=== PATIENT | male | born 1965 | race Caucasian/White ===

== ENCOUNTER 2017-10-07 10:39 | Emergency (ER) | payer OTHER ==
[2017-10-07] MEDS ORDERED: methylPREDNISolone Sodium Succinate 125 MG/2 ML SDV IVPUSH ONE (12:34)
[2017-10-07] MEDS ORDERED: Sodium Chloride 0.9% 1,000 ML IV ONE (12:56)
[2017-10-07 13:17] LABS: CHLORIDE,CL 103 mmol/L (101-111); SODIUM,NA 138 mmol/L (135-145)
[2017-10-07] MEDS ORDERED: Potassium Chloride 10 MEQ Tab.ER PO ONE (14:44)
--- NOTE | 2017-10-07 14:53 | EDM.PDOC ---
Scribed by Joan Moser 10/07/17 1255 for Janeen Redding PA-C ED HPI GENERAL MEDICAL PROBLEM - General Chief Complaint: Skin Complaint Stated Complaint: [id number] RASH ON ARM AND BACK Time Seen by Provider: 10/07/17 11:30 Source of Information: Reports: Patient, RN, RN Notes Reviewed History Limitations: Reports: No Limitations - History of Present Illness INITIAL COMMENTS - FREE TEXT/NARRATIVE: generalized rash with itching, Treatments SPORTS MEDICINE COORDINATOR: Reports: Other (see below) Other Treatments SPORTS MEDICINE COORDINATOR: benadryl - Related Data Allergies Allergy/AdvReac Type Severity Reaction Status Date / Time Penicillins Allergy Severe Rash Verified 10/07/17 11:13 Home Meds: Home Meds Cetirizine HCl [Allergy Relief] 10 mg PO DAILY 10/07/17 [History] RX: Omeprazole 20 mg PO DAILY 10/07/17 [History] RX: Warfarin Sodium 5 mg PO ASDIRECTED 10/07/17 [History] RX: Warfarin Sodium 7.5 mg PO ASDIRECTED 10/07/17 [History] Simvastatin [Zocor] 40 mg PO BEDTIME 10/07/17 [History] diphenhydrAMINE [Benadryl] 25 mg PO Q4H PRN 10/07/17 [History] rOPINIRole HCl [Requip] 0.5 mg PO BEDTIME 10/07/17 [History] Past Medical History HEENT History: Reports: Allergic Rhinitis Cardiovascular History: Reports: Blood Clots/VTE/DVT, High Cholesterol Gastrointestinal History: Reports: GERD Psychiatric History: Reports: PTSD - Past Surgical History Musculoskeletal Surgical History: Reports: Shoulder Surgery Social & Family History - Family History Family Medical History: Noncontributory - Tobacco Use Smoking Status *Q: Never Smoker Second Hand Smoke Exposure: No - Caffeine Use Caffeine Use: Reports: Coffee, Soda, Tea - Recreational Drug Use Recreational Drug Use: No ED ROS GENERAL - Review of Systems Review Of Systems: See Below Constitutional: Reports: No Symptoms HEENT: Reports: No Symptoms Respiratory: Reports: No Symptoms Cardiovascular: Reports: No Symptoms GI/Abdominal: Reports: No Symptoms : Reports: No Symptoms Musculoskeletal: Reports: No Symptoms Skin: Reports: Rash, Erythema, Urticaria Neurological: Reports: No Symptoms ED EXAM, SKIN/RASH Exam: See Below Exam Limited By: No Limitations General Appearance: Alert, No Apparent Distress Eye Exam: Bilateral Eye: PERRL Ears: Normal External Exam Nose: Normal Inspection Throat/Mouth: Normal Inspection Head: Atraumatic, Normocephalic Neck: Normal Inspection, Full Range of Motion Respiratory/Chest: No Respiratory Distress, Lungs Clear, Normal Breath Sounds Cardiovascular: Normal Peripheral Pulses, Regular Rate, Rhythm GI/Abdominal: Normal Bowel Sounds, Soft, Non-Tender Rectal (Males) Exam: Normal Exam Back Exam: Full Range of Motion Extremities: Normal Inspection Neurological: Alert, Oriented, Normal Cognition, Normal Gait Skin: Warm, Dry Location, Skin: Generalized, Other (generlaized raised niraj urticarial rash, denser on lower forearms and right young. ) Characteristics: Urticarial. No: Vesicular Associated features: Induration (right anterior young) Course - Vital Signs Last Recorded V/S: Last Vital Signs Temp 97.4 F 10/07/17 11:21 Pulse 46 L 10/07/17 14:17 Resp 17 10/07/17 14:17 BP 148/91 H 10/07/17 14:17 Pulse Ox 99 10/07/17 14:17 - Orders/Labs/Meds Orders: Active Orders 24 hr Category Date Time Status EKG 12 Lead [EKG Documentation Completion] [RC] STAT Care 10/07/17 13:10 Active UA W/MICROSCOPIC [URIN] Stat Lab 10/07/17 13:34 Ordered Labs: Laboratory Tests 10/07/17 10/07/17 10/07/17 Range/Units 12:50 12:50 12:50 WBC 8.1 (5.0-10.0) 10^3/uL RBC 5.00 (4.6-6.2) 10^6/uL Hgb 15.0 (14.0-18.0) g/dL Hct 44.3 (40.0-54.0) % MCV 88.6 (80-100) fL MCH 30.0 (27.0-34.0) pg MCHC 33.9 (33.0-35.0) g/dL Plt Count 271 (150-450) 10^3/uL Neut % (Auto) 56.0 (42.2-75.2) % Lymph % (Auto) 27.2 (20.5-50.1) % [place] % (Auto) 11.2 H (2-8) % Eos % (Auto) 5.1 H (1.0-3.0) % Baso % (Auto) 0.5 (0.0-1.0) % PT 28.3 H (9.0-12.0) SEC INR 2.9 H (0.9-1.2) D-Dimer, Quantitative (0-400) ng/mL Sodium 138 (135-145) mmol/L Potassium 3.3 L (3.6-5.0) mmol/L Chloride 103 (101-111) mmol/L Carbon Dioxide 29.0 (21.0-31.0) mmol/L Anion Gap 9.3 BUN 10 (7-18) mg/dL Creatinine 1.0 (0.6-1.3) mg/dL Est Cr Clr Drug Dosing 98.77 mL/min Estimated GFR (MDRD) > 60 BUN/Creatinine Ratio 10.00 Glucose 83 (74-105) mg/dL Calcium 9.1 (8.4-10.2) mg/dl Total Bilirubin 0.4 (0.2-1.0) mg/dL AST 26 (10-42) IU/L ALT 37 (10-60) IU/L Alkaline Phosphatase 76 (42-121) IU/L Troponin I (0.00-0.02) ng/ml C-Reactive Protein (0.0-1.3) mg/dL Total Protein 7.9 (6.7-8.2) g/dl Albumin 4.0 (3.2-5.5) g/dl Globulin 3.9 Albumin/Globulin Ratio 1.03 Urine Color (YELLOW) Urine Appearance (CLEAR) Urine pH (5.0-9.0) Ur Specific [place] (1.005-1.030) Urine Protein (NEGATIVE) Urine Glucose (UA) (NEGATIVE) Urine Ketones (NEGATIVE) Urine Occult Blood (NEGATIVE) Urine Nitrite (NEGATIVE) Urine Bilirubin (NEGATIVE) Urine Urobilinogen (0.2-1.0) mg/dL Ur Leukocyte Esterase (NEGATIVE) Urine RBC /HPF Urine WBC (0-5/HPF) /HPF Ur Epithelial Cells /HPF Urine Bacteria (0-FEW/HPF) /HPF 10/07/17 10/07/17 10/07/17 Range/Units 12:50 12:50 12:50 WBC (5.0-10.0) 10^3/uL RBC (4.6-6.2) 10^6/uL Hgb (14.0-18.0) g/dL Hct (40.0-54.0) % MCV (80-100) fL MCH (27.0-34.0) pg MCHC (33.0-35.0) g/dL Plt Count (150-450) 10^3/uL Neut % (Auto) (42.2-75.2) % Lymph % (Auto) (20.5-50.1) % [place] % (Auto) (2-8) % Eos % (Auto) (1.0-3.0) % Baso % (Auto) (0.0-1.0) % PT (9.0-12.0) SEC INR (0.9-1.2) D-Dimer, Quantitative 120 (0-400) ng/mL Sodium (135-145) mmol/L Potassium (3.6-5.0) mmol/L Chloride (101-111) mmol/L Carbon Dioxide (21.0-31.0) mmol/L Anion Gap BUN (7-18) mg/dL Creatinine (0.6-1.3) mg/dL Est Cr Clr Drug Dosing mL/min Estimated GFR (MDRD) BUN/Creatinine Ratio Glucose (74-105) mg/dL Calcium (8.4-10.2) mg/dl Total Bilirubin (0.2-1.0) mg/dL AST (10-42) IU/L ALT (10-60) IU/L Alkaline Phosphatase (42-121) IU/L Troponin I < 0.02 (0.00-0.02) ng/ml C-Reactive Protein 1.0 (0.0-1.3) mg/dL Total Protein (6.7-8.2) g/dl Albumin (3.2-5.5) g/dl Globulin Albumin/Globulin Ratio Urine Color (YELLOW) Urine Appearance (CLEAR) Urine pH (5.0-9.0) Ur Specific [place] (1.005-1.030) Urine Protein (NEGATIVE) Urine Glucose (UA) (NEGATIVE) Urine Ketones (NEGATIVE) Urine Occult Blood (NEGATIVE) Urine Nitrite (NEGATIVE) Urine Bilirubin (NEGATIVE) Urine Urobilinogen (0.2-1.0) mg/dL Ur Leukocyte Esterase (NEGATIVE) Urine RBC /HPF Urine WBC (0-5/HPF) /HPF Ur Epithelial Cells /HPF Urine Bacteria (0-FEW/HPF) /HPF 10/07/17 Range/Units 13:34 WBC (5.0-10.0) 10^3/uL RBC (4.6-6.2) 10^6/uL Hgb (14.0-18.0) g/dL Hct (40.0-54.0) % MCV (80-100) fL MCH (27.0-34.0) pg MCHC (33.0-35.0) g/dL Plt Count (150-450) 10^3/uL Neut % (Auto) (42.2-75.2) % Lymph % (Auto) (20.5-50.1) % [place] % (Auto) (2-8) % Eos % (Auto) (1.0-3.0) % Baso % (Auto) (0.0-1.0) % PT (9.0-12.0) SEC INR (0.9-1.2) D-Dimer, Quantitative (0-400) ng/mL Sodium (135-145) mmol/L Potassium (3.6-5.0) mmol/L Chloride (101-111) mmol/L Carbon Dioxide (21.0-31.0) mmol/L Anion Gap BUN (7-18) mg/dL Creatinine (0.6-1.3) mg/dL Est Cr Clr Drug Dosing mL/min Estimated GFR (MDRD) BUN/Creatinine Ratio Glucose (74-105) mg/dL Calcium (8.4-10.2) mg/dl Total Bilirubin (0.2-1.0) mg/dL AST (10-42) IU/L ALT (10-60) IU/L Alkaline Phosphatase (42-121) IU/L Troponin I (0.00-0.02) ng/ml C-Reactive Protein (0.0-1.3) mg/dL Total Protein (6.7-8.2) g/dl Albumin (3.2-5.5) g/dl Globulin Albumin/Globulin Ratio Urine Color Yellow (YELLOW) Urine Appearance Clear (CLEAR) Urine pH 5.5 (5.0-9.0) Ur Specific [place] 1.010 (1.005-1.030) Urine Protein Negative (NEGATIVE) Urine Glucose (UA) Negative (NEGATIVE) Urine Ketones Negative (NEGATIVE) Urine Occult Blood Trace-lysed H (NEGATIVE) Urine Nitrite Negative (NEGATIVE) Urine Bilirubin Negative (NEGATIVE) Urine Urobilinogen 0.2 (0.2-1.0) mg/dL Ur Leukocyte Esterase Negative (NEGATIVE) Urine RBC 0-5 /HPF Urine WBC 0-5 (0-5/HPF) /HPF Ur Epithelial Cells Occasional /HPF Urine Bacteria Occasional (0-FEW/HPF) /HPF Meds: Medications Discontinued Medications Generic Name Dose Route Start Last Admin Trade Name Freq PRN Reason Stop Dose Admin Sodium Chloride 1,000 mls @ 999 mls/hr 10/07/17 12:56 10/07/17 13:07 Normal Saline IV 10/07/17 13:56 999 mls/hr .BOLUS ONE Administration Methylprednisolone Sodium Succinate 125 mg 10/07/17 12:34 10/07/17 12:51 Solu-Medrol IVPUSH 10/07/17 12:35 125 mg ONETIME ONE Administration Potassium Chloride 20 meq 10/07/17 14:44 Klor-Con 10 PO 10/07/17 14:45 ONETIME ONE - Re-Assessments/Exams Free Text/Narrative Re-Assessment/Exam: 10/07/17 13:44 rash improving, decreased itching, less red. On telemetry, noting HR dropping to low 30's remains sinus. Asymptomatic currently but patient notes some dizziness in past week since appearance of rash. Tx to [facility] r/t bradycardia. Dr Webber accepting of patient. Tx via [facility] Departure - Departure Time of Disposition: 14:45 Disposition: DC/Tfer to Acute Hospital 02 Condition: Undetermined Clinical Impression: Bradycardia, Urticarial rash - Discharge Information Forms: ED Department Discharge - My Orders Last 24 Hours: My Active Orders 10/07/17 13:10 EKG 12 Lead [EKG Documentation Completion] [RC] STAT 10/07/17 13:34 UA W/MICROSCOPIC [URIN] Stat - Assessment/Plan Last 24 Hours: My Active Orders 10/07/17 13:10 EKG 12 Lead [EKG Documentation Completion] [RC] STAT 10/07/17 13:34 UA W/MICROSCOPIC [URIN] Stat I have read and agree with the documentation that has been completed regarding this visit. By signing this record, I attest that the documentation was completed in my physical presence and is an accurate record of the encounter.
--- NOTE | 2017-10-10 07:47 | EKG ---
10/07/2017- KAVITA CERVANTES - FINDINGS: EKG per my reading shows sinus bradycardia at the rate of 41. MODL /[id number]
== END 2017-10-07 15:00 ==
LOC: DL.ED 10:39
DX: L50.9 Urticaria, unspecified (principal); R00.1 Bradycardia, unspecified; E78.00 Pure hypercholesterolemia, unspecified; Z88.0 Allergy status to penicillin; Z79.899 Other long term (current) drug therapy
CPT/HCPCS: 36415; 80053; 81001; 84484; 85025; 85379; 85610; 86140; 93005; 93010; 96374; 99284; J2930; J7030; 99285

== ENCOUNTER 2019-11-05 00:52 | Emergency (ER) | payer OTHER ==
[2019-11-05] MEDS ORDERED: Oxymetazoline 0.05% Nasal Spray 15 ML Bottle NAS ONE (00:59)
--- NOTE | 2019-11-05 01:07 | EDM.PDOC ---
ED HPI GENERAL MEDICAL PROBLEM - General Stated Complaint: NOSE GUSHING BLOOD Time Seen by Provider: 11/05/19 01:00 Source of Information: Reports: Patient History Limitations: Reports: No Limitations - History of Present Illness INITIAL COMMENTS - FREE TEXT/NARRATIVE: This 54 yo male patient reports to the ED with a nosebleed. The patient reports he has been on Warfarin for blood clots. The bleeding had stopped prior to arrival in the ED. Onset: Today Duration: Minutes: Location: Reports: Face Quality: Reports: Other Severity: Moderate Improves with: Reports: None Worsens with: Reports: None Context: Reports: Other - Related Data Allergies Allergy/AdvReac Type Severity Reaction Status Date / Time Penicillins Allergy Severe Rash Verified 11/05/19 01:02 Home Meds: Home Meds Cetirizine HCl [Allergy Relief] 10 mg PO DAILY 10/07/17 [History] Omeprazole 20 mg PO DAILY 10/07/17 [History] Simvastatin [Zocor] 40 mg PO BEDTIME 10/07/17 [History] Warfarin Sodium 5 mg PO ASDIRECTED 10/07/17 [History] Warfarin Sodium 7.5 mg PO ASDIRECTED 10/07/17 [History] diphenhydrAMINE [Benadryl] 25 mg PO Q4H PRN 10/07/17 [History] rOPINIRole HCl [Requip] 0.5 mg PO BEDTIME 10/07/17 [History] Past Medical History HEENT History: Reports: Allergic Rhinitis Cardiovascular History: Reports: Blood Clots/VTE/DVT, High Cholesterol Gastrointestinal History: Reports: GERD Psychiatric History: Reports: PTSD - Past Surgical History Musculoskeletal Surgical History: Reports: Shoulder Surgery Social & Family History - Family History Family Medical History: Noncontributory - Caffeine Use Caffeine Use: Reports: Coffee, Soda, Tea ED ROS ENT - Review of Systems Review Of Systems: Comprehensive ROS is negative, except as noted in HPI. ED EXAM, ENT - Physical Exam Exam: See Below Exam Limited By: No Limitations General Appearance: Alert, WD/WN, Moderate Distress Eye Exam: Bilateral Eye: EOMI, Normal Inspection, PERRL Ears: Normal External Exam, Normal Canal, Hearing Grossly Normal, Normal TMs Nose: Dried Blood (right nare) Mouth/Throat: Normal Inspection, Normal Gums, Normal Lips, Normal Oropharynx, Normal Teeth Head: Atraumatic, Normocephalic Neck: Normal Inspection, Supple, Non-Tender, Full Range of Motion Respiratory/Chest: No Respiratory Distress, Lungs Clear, Normal Breath Sounds, No Accessory Muscle Use, Chest Non-Tender Cardiovascular: Normal Peripheral Pulses, Regular Rate, Rhythm, No Edema, No Gallop, No JVD, No Murmur, No Rub GI/Abdominal: Normal Bowel Sounds, Soft, Non-Tender, No Organomegaly, No Distention, No Abnormal Bruit, No Mass (Male) Exam: Deferred Rectal (Males) Exam: Deferred Back: Normal Inspection, Full Range of Motion Extremities: Normal Inspection, Normal Range of Motion, Non-Tender, No Pedal Edema, Normal Capillary Refill Neurological: Alert, Oriented, CN II-XII Intact, Normal Cognition, Normal Gait, Normal Reflexes, No Motor/Sensory Deficits Psychiatric: Normal Affect, Normal Mood Skin: Warm, Dry, Intact, Normal Color, No Rash Lymphatic: No Adenopathy Course - Vital Signs Last Recorded V/S: Last Vital Signs Temp 36.0 C L 11/05/19 01:04 Pulse 72 11/05/19 01:04 Resp 16 11/05/19 01:04 BP 158/87 H 11/05/19 01:04 Pulse Ox 97 11/05/19 01:04 - Orders/Labs/Meds Labs: Laboratory Tests 11/05/19 11/05/19 11/05/19 Range/Units 01:12 01:12 01:12 WBC 11.0 H (5.0-10.0) 10^3/uL RBC 4.66 (4.6-6.2) 10^6/uL Hgb 14.2 (14.0-18.0) g/dL Hct 42.1 (40.0-54.0) % MCV 90.3 (80-100) fL MCH 30.5 (27.0-34.0) pg MCHC 33.7 (33.0-35.0) g/dL Plt Count 246 (150-450) 10^3/uL Neut % (Auto) 53.5 (42.2-75.2) % Lymph % (Auto) 33.0 (20.5-50.1) % [place] % (Auto) 10.5 H (2-8) % Eos % (Auto) 2.5 (1.0-3.0) % Baso % (Auto) 0.5 (0.0-1.0) % PT 27.3 H (9.0-12.0) SEC INR 2.9 H (0.9-1.2) Sodium 142 (136-145) mmol/L Potassium 3.3 L (3.5-5.1) mmol/L Chloride 105 (98-107) mmol/L Carbon Dioxide 31 (21-32) mmol/L Anion Gap 9.3 (7-13) mEq/L BUN 10 (7-18) mg/dL Creatinine 1.26 (0.70-1.30) mg/dL Est Cr Clr Drug Dosing 76.62 mL/min Estimated GFR (MDRD) 60 BUN/Creatinine Ratio 7.9 (No establ ref range) Glucose 112 H (74-99) mg/dL Calcium 8.5 (8.5-10.1) mg/dL Total Bilirubin 0.4 (0.2-1.0) mg/dL AST 23 (15-37) U/L ALT 48 (16-63) U/L Alkaline Phosphatase 107 (46-116) U/L Total Protein 7.4 (6.4-8.2) g/dL Albumin 3.4 (3.4-5.0) g/dL Globulin 4.0 Albumin/Globulin Ratio 0.9 Meds: Medications Discontinued Medications Generic Name Dose Route Start Last Admin Trade Name Freq PRN Reason Stop Dose Admin Oxymetazoline HCl 1 ml 11/05/19 00:59 11/05/19 01:12 Afrin Original 0.05% Nasal [place] TACO 11/05/19 01:00 1 dose ONETIME ONE Administration Departure - Departure Time of Disposition: 02:10 Disposition: Home, Self-Care 01 Condition: Good Clinical Impression: Epistaxis - Discharge Information *PRESCRIPTION DRUG MONITORING PROGRAM REVIEWED*: Not Applicable *COPY OF PRESCRIPTION DRUG MONITORING REPORT IN PATIENT TRICIA: Not Applicable Instructions: Nosebleed, [id number] Care Plan Goals: The patient was advised of the examination and lab results during the visit. The patient's nose was sprayed with Afrin while in the ED to avoid additional bleeding. The patient was encouraged to use Aquaphor applied to each nostril before bed to increase the moisture in his nose. The patient was advised to avoid blowing his nose for the next 24 hours. If the patient has any additional symptoms or concerns, the patient should either return to the emergency department or visit his primary care facility. Sepsis Event Note (ED) - Focused Exam Vital Signs: Vital Signs Temp Pulse Resp BP Pulse Ox 11/05/19 01:04 36.0 C L 72 16 158/87 H 97
[2019-11-05 01:37] LABS: ANION GAP 9.3 mEq/L (7-13)
== END 2019-11-05 02:14 | disposition home or self-care (01) ==
LOC: DL.ED 00:52
DX: R04.0 Epistaxis (principal); E78.00 Pure hypercholesterolemia, unspecified; K21.9 Gastro-esophageal reflux disease without esophagitis; Z88.0 Allergy status to penicillin; Z79.899 Other long term (current) drug therapy
CPT/HCPCS: 36415; 80053; 85025; 85610; 99283; A9270

== ENCOUNTER 2019-11-05 23:13 | Emergency (ER) | payer OTHER ==
[2019-11-05] MEDS ORDERED: Oxymetazoline 0.05% Nasal Spray 15 ML Bottle NAS ONE (23:17)
--- NOTE | 2019-11-06 00:01 | EDM.PDOC ---
ED HPI GENERAL MEDICAL PROBLEM - General Chief Complaint: ENT Problem Stated Complaint: [facility]-NOSE[facility] Time Seen by Provider: 11/05/19 23:15 Source of Information: Reports: Patient History Limitations: Reports: No Limitations - History of Present Illness INITIAL COMMENTS - FREE TEXT/NARRATIVE: nosebleed gushing out left side tried pressure and ice, not helping Had one last night but stopped by time came to ED. On coumadin. - Related Data Allergies Allergy/AdvReac Type Severity Reaction Status Date / Time Penicillins Allergy Severe Rash Verified 11/05/19 01:02 Home Meds: Home Meds Cetirizine HCl [Allergy Relief] 10 mg PO DAILY 10/07/17 [History] Omeprazole 20 mg PO DAILY 10/07/17 [History] Simvastatin [Zocor] 40 mg PO BEDTIME 10/07/17 [History] Warfarin Sodium 5 mg PO ASDIRECTED 10/07/17 [History] Warfarin Sodium 7.5 mg PO ASDIRECTED 10/07/17 [History] diphenhydrAMINE [Benadryl] 25 mg PO Q4H PRN 10/07/17 [History] rOPINIRole HCl [Requip] 0.5 mg PO BEDTIME 10/07/17 [History] Past Medical History HEENT History: Reports: Allergic Rhinitis Cardiovascular History: Reports: Blood Clots/VTE/DVT, High Cholesterol Respiratory History: Reports: PE Gastrointestinal History: Reports: GERD Psychiatric History: Reports: PTSD - Past Surgical History Musculoskeletal Surgical History: Reports: Shoulder Surgery Social & Family History - Family History Family Medical History: Noncontributory - Tobacco Use Smoking Status *Q: Never Smoker Second Hand Smoke Exposure: No - Caffeine Use Caffeine Use: Reports: Coffee, Soda, Tea - Recreational Drug Use Recreational Drug Use: No ED ROS ENT - Review of Systems Review Of Systems: Comprehensive ROS is negative, except as noted in HPI. ED EXAM, ENT - Physical Exam Exam: See Below Exam Limited By: No Limitations General Appearance: Alert, Anxious, Mild Distress Eye Exam: Bilateral Eye: EOMI, PERRL Ears: Normal External Exam Nose: Active Bleeding (small amount left nare), Injected Turbinates Mouth/Throat: Other (scant bleeding left posterior pharnayx from nose) Head: Atraumatic, Normocephalic Respiratory/Chest: Normal Breath Sounds Cardiovascular: Normal Peripheral Pulses, Regular Rate, Rhythm GI/Abdominal: Normal Bowel Sounds, Soft Extremities: Normal Inspection Neurological: Alert, Oriented, Normal Cognition Psychiatric: Normal Affect, Normal Mood Skin: Warm, Dry, Intact, Normal Color Course - Vital Signs Last Recorded V/S: Last Vital Signs Temp 98.6 F 11/05/19 23:13 Pulse 72 11/05/19 23:13 Resp 18 11/05/19 23:13 BP 161/96 H 11/05/19 23:13 Pulse Ox 95 11/05/19 23:13 - Orders/Labs/Meds Labs: Laboratory Tests 11/05/19 11/05/19 11/05/19 Range/Units 23:31 23:31 23:31 WBC 11.6 H (5.0-10.0) 10^3/uL RBC 4.75 (4.6-6.2) 10^6/uL Hgb 14.4 (14.0-18.0) g/dL Hct 43.0 (40.0-54.0) % MCV 90.5 (80-100) fL MCH 30.3 (27.0-34.0) pg MCHC 33.5 (33.0-35.0) g/dL Plt Count 263 (150-450) 10^3/uL Neut % (Auto) 68.1 (42.2-75.2) % Lymph % (Auto) 19.4 L (20.5-50.1) % [place] % (Auto) 9.9 H (2-8) % Eos % (Auto) 2.0 (1.0-3.0) % Baso % (Auto) 0.6 (0.0-1.0) % PT 26.1 H (9.0-12.0) SEC INR 2.8 H (0.9-1.2) B-Natriuretic Peptide 102 H (0-100) pg/ml Meds: Medications Discontinued Medications Generic Name Dose Route Start Last Admin Trade Name Freq PRN Reason Stop Dose Admin Oxymetazoline HCl 1 ml 11/05/19 23:17 11/05/19 23:45 Afrin Original 0.05% Nasal [place] TACO 11/05/19 23:18 1 ml ONETIME ONE Administration - Re-Assessments/Exams Free Text/Narrative Re-Assessment/Exam: 11/06/19 00:01 nasal rocket 7.5- 7ml air. 11/06/19 00:19 no bleeding Departure - Departure Time of Disposition: 00:20 Disposition: Home, Self-Care 01 Condition: Good Clinical Impression: Epistaxis, Chronic anticoagulation - Discharge Information *PRESCRIPTION DRUG MONITORING PROGRAM REVIEWED*: No *COPY OF PRESCRIPTION DRUG MONITORING REPORT IN PATIENT TRICIA: No Instructions: Nosebleed, [id number] Forms: ED Department Discharge Additional Instructions: clinic follow up humidification nasal rocket to be removed tomorrow in clinic urgent follow up severe bleeding despite, rocket and pressure Sepsis Event Note (ED) - Evaluation Sepsis Screening Result: No Definite Risk - Focused Exam Vital Signs: Vital Signs Temp Pulse Resp BP Pulse Ox 11/05/19 23:13 98.6 F 72 18 161/96 H 95
== END 2019-11-06 00:31 | disposition home or self-care (01) ==
LOC: DL.ED 23:13
DX: R04.0 Epistaxis (principal); E78.00 Pure hypercholesterolemia, unspecified; K21.9 Gastro-esophageal reflux disease without esophagitis; Z86.718 Personal history of other venous thrombosis and embolism; Z86.711 Personal history of pulmonary embolism; Z88.0 Allergy status to penicillin; Z79.899 Other long term (current) drug therapy; Z79.01 Long term (current) use of anticoagulants
CPT/HCPCS: 30903; 36415; 83880; 85025; 85610; 99283; A9270

== ENCOUNTER 2019-11-06 01:05 | Emergency (ER) | payer OTHER ==
[2019-11-06] MEDS ORDERED: Azithromycin 250 MG Tab PO ONE ×2 (01:06→03:30)
[2019-11-06] MEDS ORDERED: cloNIDine 0.1 MG Tab PO ONE ×2 (01:06→03:25)
[2019-11-06] MEDS ORDERED: Oxymetazoline 0.05% Nasal Spray 15 ML Bottle NAS ONE (01:08)
[2019-11-06] MEDS ORDERED: Benzocaine 20% Oral Spray 59.2 ML Canister MUCMEM ONE (01:51)
[2019-11-06] MEDS ORDERED: LORazepam 0.5 MG Tab PO ONE (01:52)
[2019-11-06] MEDS ORDERED: Azithromycin 250 MG Tab ONE (03:39)
[2019-11-06] MEDS ORDERED: cloNIDine 0.1 MG Tab ONE (03:39)
--- NOTE | 2019-11-07 04:25 | EDM.PDOC ---
ED HPI GENERAL MEDICAL PROBLEM - General Chief Complaint: ENT Problem Stated Complaint: NOSE GUSHING BLOOD Time Seen by Provider: 11/06/19 01:10 Source of Information: Reports: Patient, Family, RN History Limitations: Reports: No Limitations - History of Present Illness INITIAL COMMENTS - FREE TEXT/NARRATIVE: ED , return with recurrent nose bleed. Nasal rocket out, bleeding left nare reports fell out when sneezed. frequent clearing of throat, Applying pressure to nose through multiple layers of towel. Reported bleeding started again approximately 20minutes from when left ED. 3rd visit in 24 hours - Related Data Allergies Allergy/AdvReac Type Severity Reaction Status Date / Time Penicillins Allergy Severe Rash Verified 11/05/19 01:02 Home Meds: Home Meds Cetirizine HCl [Allergy Relief] 10 mg PO DAILY 10/07/17 [History] Omeprazole 20 mg PO DAILY 10/07/17 [History] Simvastatin [Zocor] 40 mg PO BEDTIME 10/07/17 [History] Warfarin Sodium 5 mg PO ASDIRECTED 10/07/17 [History] Warfarin Sodium 7.5 mg PO ASDIRECTED 10/07/17 [History] diphenhydrAMINE [Benadryl] 25 mg PO Q4H PRN 10/07/17 [History] rOPINIRole HCl [Requip] 0.5 mg PO BEDTIME 10/07/17 [History] Past Medical History HEENT History: Reports: Allergic Rhinitis Cardiovascular History: Reports: Blood Clots/VTE/DVT, High Cholesterol Respiratory History: Reports: PE Gastrointestinal History: Reports: GERD Psychiatric History: Reports: PTSD - Past Surgical History Musculoskeletal Surgical History: Reports: Shoulder Surgery Social & Family History - Family History Family Medical History: Noncontributory - Caffeine Use Caffeine Use: Reports: Coffee, Soda, Tea ED ROS ENT - Review of Systems Review Of Systems: Comprehensive ROS is negative, except as noted in HPI. ED EXAM, ENT - Physical Exam Exam: See Below Exam Limited By: No Limitations General Appearance: Alert, Anxious, Mild Distress Eye Exam: Bilateral Eye: EOMI Ears: Normal External Exam Nose: Active Bleeding (slow trickle right without pressure, Unable to visualize bleedier, Small clot posterior pharynx, Do not appreciate active posterior bleeding), Injected Turbinates (right) Mouth/Throat: Normal Inspection Head: Atraumatic, Normocephalic Neck: Normal Inspection Respiratory/Chest: No Respiratory Distress, Lungs Clear, Normal Breath Sounds Cardiovascular: Normal Peripheral Pulses, Regular Rate, Rhythm GI/Abdominal: Normal Bowel Sounds Back: Normal Inspection, Full Range of Motion Extremities: Normal Inspection, Normal Range of Motion Psychiatric: Anxious Skin: Warm, Dry, Intact Course - Vital Signs Last Recorded V/S: Last Vital Signs Temp 97.8 F 11/06/19 01:07 Pulse 89 11/06/19 01:07 Resp 18 11/06/19 01:07 BP 159/95 H 11/06/19 01:07 Pulse Ox 97 11/06/19 01:07 - Orders/Labs/Meds Meds: Medications Discontinued Medications Generic Name Dose Route Start Last Admin Trade Name Freq PRN Reason Stop Dose Admin Azithromycin 500 mg 11/06/19 03:30 Zithromax PO 11/06/19 03:31 ONETIME ONE Azithromycin Confirm 11/06/19 03:39 Zithromax Administered 11/06/19 03:40 Dose 500 mg .ROUTE .STK-MED ONE Azithromycin 500 mg 11/06/19 01:06 Zithromax PO 11/06/19 01:07 .STK-MED ONE Benzocaine 2 ml 11/06/19 01:51 11/06/19 02:27 Hurricaine 20% Smock MUCMEM 11/06/19 01:52 Not Given ONETIME ONE Clonidine HCl 0.1 mg 11/06/19 03:25 Catapres PO 11/06/19 03:26 ONETIME ONE Clonidine HCl Confirm 11/06/19 03:39 Catapres Administered 11/06/19 03:40 Dose 0.1 mg .ROUTE .STK-MED ONE Clonidine HCl 0.1 mg 11/06/19 01:06 Catapres PO 11/06/19 01:07 .STK-MED ONE Lorazepam 0.5 mg 11/06/19 01:52 11/06/19 02:26 Ativan PO 11/06/19 01:53 0.5 mg ONETIME ONE Administration Oxymetazoline HCl 1 ml 11/06/19 01:08 11/06/19 01:44 Afrin Original 0.05% Nasal Smock TACO 11/06/19 01:09 Not Given ONETIME ONE - Re-Assessments/Exams Free Text/Narrative Re-Assessment/Exam: 11/07/19 04:21 Gentle blow to clear nasal clot , direct pressure to nasal bridge, intermittent trickle anterior if patent sitting forward. Nasal Rocket 5.5 inserted with 7ml to balloon after afrin spray. No further bleeding. BP elevated. Patient anxious. Departure - Departure Time of Disposition: 03:40 Disposition: Home, Self-Care 01 Condition: Fair Clinical Impression: Epistaxis - Discharge Information *PRESCRIPTION DRUG MONITORING PROGRAM REVIEWED*: No *COPY OF PRESCRIPTION DRUG MONITORING REPORT IN PATIENT TRICIA: No Instructions: Nosebleed, [id number] Referrals: [facility] [Primary Care Provider] - Forms: ED Department Discharge Additional Instructions: [facility] with [facility] azithromycin as directed Sepsis Event Note (ED) - Evaluation Sepsis Screening Result: No Definite Risk
== END 2019-11-06 04:22 | disposition home or self-care (01) ==
LOC: DL.ED 01:05
DX: R04.0 Epistaxis (principal); E78.00 Pure hypercholesterolemia, unspecified; K21.9 Gastro-esophageal reflux disease without esophagitis; Z86.711 Personal history of pulmonary embolism; Z88.0 Allergy status to penicillin; Z79.899 Other long term (current) drug therapy
CPT/HCPCS: 30903; 99283; A9270

== ENCOUNTER 2024-03-28 14:22 | Emergency (ER) | payer OTHER ==
[2024-03-28 15:08] LABS: APPEARANCE,URINE CLEAR (CLEAR); BILIRUBIN,URINE NEGATIVE (NEGATIVE); COLOR,URINE YELLOW (YELLOW); GLUCOSE,URINE NEGATIVE (NEGATIVE); KETONES,URINE NEGATIVE (NEGATIVE); LEUKOCYTE ESTERASE,URINE NEGATIVE (NEGATIVE); NITRITE,URINE NEGATIVE (NEGATIVE); OCCULT BLOOD,URINE TRACE-INTACT (NEGATIVE); PH,URINE 6.5 (5.0-9.0); PROTEIN,URINE NEGATIVE (NEGATIVE); UROBILINOGEN,URINE 0.2 mg/dL (0.2-1.0)
[2024-03-28 15:17] LABS: EPITHELIAL CELLS,URINE RARE /HPF (NOT SEEN)
[2024-03-28 15:18] LABS: BACTERIA,URINE RARE /HPF (0-FEW/HPF); RBC,URINE 0-5 /HPF (0-5); WBC,URINE 0-5 /HPF (0-5/HPF)
[2024-03-28] MEDS: Lidocaine 2% with EPINEPHrine 1:200,000 20 ML SDV INJECT ONE (16:54)
== END 2024-03-28 17:26 | disposition home or self-care (01) ==
LOC: DL.ED 14:22
DX: N41.0 Acute prostatitis (principal); R33.9 Retention of urine, unspecified; I10 Essential (primary) hypertension; E78.00 Pure hypercholesterolemia, unspecified; K21.9 Gastro-esophageal reflux disease without esophagitis; Z88.0 Allergy status to penicillin; Z79.01 Long term (current) use of anticoagulants; Z79.899 Other long term (current) drug therapy
CPT/HCPCS: 74018; 81001; 99283; J3490

== ENCOUNTER 2025-01-27 17:17 | Emergency (ER) | payer OTHER ==
[2025-01-27] MEDS: Orphenadrine 60 MG/2 ML Inj IM ONE (17:59)
== END 2025-01-27 19:02 | disposition home or self-care (01) ==
LOC: DL.ED 17:17
DX: S39.012A Strain of muscle, fascia and tendon of lower back, initial encounter (principal); I10 Essential (primary) hypertension; E78.00 Pure hypercholesterolemia, unspecified; K21.9 Gastro-esophageal reflux disease without esophagitis; Z88.0 Allergy status to penicillin; Z79.01 Long term (current) use of anticoagulants; Z79.899 Other long term (current) drug therapy; X50.0XXA Overexertion from strenuous movement or load, initial encounter; Y93.89 Activity, other specified
CPT/HCPCS: 96372; 99283; A9270; J2360; J8540